=== PATIENT | female | born 1975 | race Caucasian/White ===

== ENCOUNTER 2016-06-11 16:58 | Outpatient (CLI) | payer OTHER ==
--- NOTE | 2016-06-11 17:59 | DIAGNOSTIC IMAGING REPORT ---
PROCEDURE: US OB DETAILED ANATOMIC INDICATION: ANATOMY TECHNIQUE: Castro scale, color, and spectral Doppler images of the second trimester gravid uterus were obtained. COMPARISON: None. FINDINGS: A single living intrauterine is in vertex presentation. There is regular cardiac activity at a rate of 143 beats per minute. The placenta is anterior and left and covering the internal cervical os. The cervix is closed measuring approximately 3.5 in length. The amniotic fluid volume is subjectively normal. Biparietal diameter 5 cm at 21 weeks and 1 day Head circumference 19 cm at 21 weeks and 2-day Abdominal circumference 16.5 cm at 21 weeks and 4-day Femur length 3.6 cm at 21 weeks and 2 days Head to abdominal circumference ratio and femur length to abdominal circumference ratios are normal. Estimated weight 421 g Composite gestational age 21 weeks and 2 days DEMETRIUS 10/20/2016 There was visualization of a number of normal structures including the intracranial contents, facial features, nuchal region, spine, four-chamber heart and outflow tracts to the extent that could be visualized, diaphragm, fluid-filled stomach, kidneys, abdomen, urinary bladder, upper and lower extremities, and genitals. A three-vessel umbilical cord, normal and placental cord insertion sites were seen. IMPRESSION: 1. Single living intrauterine with a composite gestational age of 21 weeks and 2 days, DEMETRIUS 10/20/2016. 2. Symmetric and normal anatomy. 3. Placenta previa. Recommend repeat scan at 30 weeks.
== END 2016-06-11 23:00 ==
LOC: US SRH 16:58
DX: Z34.92 Encounter for supervision of normal pregnancy, unspecified, second trimester (principal); Z3A.21 21 weeks gestation of pregnancy

== ENCOUNTER 2016-07-20 15:22 | Outpatient (CLI) | payer OTHER | END 2016-07-20 23:00 | LOC: LAB SRH 15:22 | DX: Z34.82 Encounter for supervision of other normal pregnancy, second trimester (principal) | CPT/HCPCS: 90039; 90074; 91162; 91163 ==

== ENCOUNTER 2016-08-16 11:53 | Outpatient (CLI) | payer OTHER ==
--- NOTE | 2016-08-16 13:28 | DIAGNOSTIC IMAGING REPORT ---
PROCEDURE: US OB LIMITED INDICATION: RE EVAL PLACENTAL PREVIA/ PLACEMENT TECHNIQUE: Castro scale and color Doppler sonographic images obtained of the gravid uterus. COMPARISON: OB ultrasound 06/11/2016 FINDINGS: Single intrauterine with vertex presentation and anterior placenta without previa. Heart rate one and 50 bpm. Amniotic fluid is unremarkable. Normal closed cervix measures 3.5 cm. Kidneys and bladder are visualized. IMPRESSION: 1. Single live intrauterine , vertex 2. Anterior placenta with resolved previa.
== END 2016-08-16 23:00 ==
LOC: US SRH 11:53
DX: O44.02 Complete placenta previa NOS or without hemorrhage, second trimester (principal)

== ENCOUNTER 2016-09-14 08:03 | Outpatient (CLI) | payer OTHER | END 2016-09-14 09:25 | disposition home or self-care (01) | LOC: OBC SRH 08:03 → OB SRH 08:06 → OBC SRH 09:25 | PROC: 4A0HXCZ Measurement of Products of Conception, Cardiac Rate, External Approach (ICD-10-PCS; principal; 2016-09-14) | DX: O23.43 Unspecified infection of urinary tract in pregnancy, third trimester (principal); R31.9 Hematuria, unspecified; Z3A.33 33 weeks gestation of pregnancy | CPT/HCPCS: 40003; 40016; 90004; 90469 ==

== ENCOUNTER 2016-10-16 23:29 | Inpatient (IN) | payer OTHER ==
[~2016-10-16] VITALS: Ht 162.6 cm; Wt 89.4 kg
[2016-10-17] VITALS (9 sets, daily range): BP systolic 138–177; BP diastolic 74–107
--- NOTE | 2016-10-17 08:29 | NUR ---
ASSUMED CARE, FF2U MOD FLOW, HL, ASSESSMENT COMPLETED, WANTS TO SLEEP, C/O FEELING COOL, WM BLANKET GIVEN, TEMP 99.1, I WILL RECHECK
--- NOTE | 2016-10-17 23:26 | NUR ---
BILAT [facility]ED[facility] EDEMA 2/[address] UP TO KNEE.
[2016-10-18 02:00] VITALS: BP 140/89
[2016-10-18 09:35] VITALS: BP 153/98
--- NOTE | 2016-10-18 10:05 | Provider's Discharge Care Plan ---
Problem, Goal, Plan Problem List 1. induced hypertension
--- NOTE | 2016-10-18 10:05 | Provider's Discharge Care Plan ---
Problem, Goal, Plan Problem List 1. Vaginal delivery Goals: Improve disease control Instructions: Follow up as needed
--- NOTE | 2016-10-18 10:05 | Provider's Discharge Care Plan ---
Problem, Goal, Plan Problem List 1. Vaginal delivery Goals: Improve disease control Instructions: Follow up as needed
--- NOTE | 2016-10-18 10:05 | Provider's Discharge Care Plan ---
Problem, Goal, Plan Problem List 1. induced hypertension
[2016-10-18 12:04] VITALS: BP 136/87
[2016-10-18 16:15] VITALS: BP 145/87
--- NOTE | 2016-10-18 18:33 | NUR ---
PATIENT DISCHARGED HOME WITH NB. AMBULATED TO CAR AND TRANSPORTED HOME WITH . DISCHARGE INSTRUCTIONS GIVEN PER DELORES BANKS RN SHE VERBALIZES UNDERSTANDING OF INSTRUCTIONS AND DENIES ANY QUESTIONS.
== END 2016-10-18 18:30 | disposition home or self-care (01) | DRG 560 ==
LOC: OBC SRH 23:29 → OB SRH 23:37 → OBC SRH 23:51 → OB SRH 23:51
PROVIDERS: ADMIT Obstetrics & Gynecology
PROC: 10E0XZZ Delivery of Products of Conception, External Approach (ICD-10-PCS; principal; 2016-10-17)
DX: O70.1 Second degree perineal laceration during delivery (principal); Z37.0 Single live birth; Z3A.39 39 weeks gestation of pregnancy
CPT/HCPCS: 40011; 90001; 90074; 90155; 91004; 91162; 91163; 95059